=== PATIENT | female | born 1930 | race Caucasian/White ===

== ENCOUNTER 2018-05-20 13:17 | Inpatient (IN) ==
[2018-05-21] MEDS ORDERED: Temazepam 15 MG CAPSULE PO PRN (21:02)
[2018-05-21] MEDS ORDERED: Mag Hydrox/Al Hydrox/Simeth 30 ML UDC PO PRN (21:06)
[2018-05-21] MEDS: traZODone 50 MG TABLET PO SCH (23:41)
[2018-05-22] MEDS: *HR* Heparin 5,000 UNIT/ML VIAL SQ SCH ×2 (04:45→17:51)
[2018-05-22] MEDS: Nitrofurantoin (BID) 100 MG CAPSULE PO SCH ×2 (04:45→17:50)
[2018-05-22 05:22] LABS: Basophils % 0.5 %; Eosinophils # 0.3 K/mcL (0.0-0.6); Eosinophils % 5.5 %; Hematocrit 31.8 % (35.3-44.9); Hemoglobin 10.4 g/dL (11.5-15.4); Immature Granulocytes % 0.6 % (0-4); Lymphocytes # 1.6 K/mcL (0.6-4.6); Lymphocytes % 26.1 %; Mean Corpuscular HGB Conc 32.7 g/dL (31.6-35.5); Mean Corpuscular Hemoglobin 28.7 pg (28.0-33.3); Mean Corpuscular Volume 87.8 fL (83.0-100.0); Mean Platelet Volume 9.4 fL (9.4-12.4); Monocytes # 0.8 K/mcL (0.0-1.3); Monocytes % 13.5 %; Neutrophils # 3.3 K/mcL (1.6-8.9); Platelet Count 240 K/mcL (140-400); Red Blood Count 3.62 M/mcL (3.82-4.97); Red Cell Distribution Width 14.4 % (11.5-14.5); Segmented Neutrophils % 53.8 %
[2018-05-22 05:37] LABS: Alanine Aminotransferase 29 Units/L (7-52); Albumin/Globulin Ratio 1.2 (1.1-2.2); Alkaline Phosphatase 33 Units/L (34-104); Aspartate Amino Transferase 50 Units/L (13-39); BUN/Creatinine Ratio 13 (6-26); Bilirubin,Total 0.6 mg/dL (0.3-1.0); Blood Urea Nitrogen 8 mg/dL (8-23); Calcium 9.2 mg/dL (8.6-10.3); Carbon Dioxide 24 mEq/L (23-29); Chloride 108 mEq/L (98-107); Globulin 2.5 g/dL (2.4-3.5); Glucose 91 mg/dL (70-105); Osmolality,Calculated 288 (280-300); Potassium 3.4 mEq/L (3.5-5.1); Sodium 140 mEq/L (136-145); Total Protein 5.5 g/dL (6.4-8.9); eGFR For Non-African Americans > 60 (> 60)
[2018-05-22] MEDS: Multivit/Ca/Min/Fe/FA 1 TAB TABLET PO SCH (10:05)
[2018-05-22] MEDS: Fenofibrate 54 MG TABLET PO SCH (10:05)
[2018-05-22] MEDS: Aspirin Enteric Coated 81 MG Tablet PO SCH (10:06)
[2018-05-22] MEDS: Lisinopril 20 MG TABLET PO SCH (10:06)
--- NOTE | 2018-05-22 13:50 | Internal Med History&Physical ---
Addendum entered and electronically signed by Morgan Corcoran MD 05/22/18 14:39: I have personally performed a face to face evaluation on this patient. I have r eviewed and agree with the care plan. History and Exam by me shows: Patient gives a one-week history of nausea, vomiting, diarrhea, cough, shortness of breath, and failure to thrive. She was taken to [facility] and found to have influenza A. She did well after several days and has improved Her appetite is still not very good. She has no fevers chills or sweats. Her diarrhea persists. She was checked for C. difficile, by verbal report, and this was negative. She is now unsteady and weak and would like to return home. Therapy is planned to help her weakness. Past medical history was reviewed with patient and daughter. While dementia is listed, and apparently this is mild. She has hypertension, a history of coronary artery disease with "pulling procedure" and a brief arrhythmia, thereafter. No arrhythmia or treatment for same, recently. She is treated with a statin for hyperlipidemia. Surgeries include cholecystectomy, bladder suspension with resultant neurogenic bladder which causes her to need to self catheterize, for about 20 years. She has also had left cataract extraction with IOL, appendectomy, low back surgery. She has no known drug allergies. She is slightly hard of hearing but does not wear hearing aids. She has been told that there is a small wound on her buttocks which is apparently from traction per nursing. She wears full dentures, upper and lower. She drinks on a regular basis but her daughter states that she does not need very much, at all. She has never smoked and does not drink. She is a retired nurse's aide. She lives alone with the exception of her dog. Son lives next door and daughter is frequently by to see her; she lives nearby. Family history is significant for coronary disease in both parents. Patient has no complaint of chest discomfort, dyspnea, orthopnea, breathing problems, palpitations, nausea or vomiting, constipation or diarrhea, other changes in bowel habits, heartburn, difficulty with urination, kidney problems or kidney stones, fevers chills or sweats, rash or itching, seizures, headache or lightheadedness, heat or cold intolerance, blood problems or anemia, or other new complaints, except as mentioned above. Review of systems is otherwise negative. Examination: (Except as mentioned above): General: In no apparent distress, alert and oriented 3. Head: Atraumatic and normocephalic. Eyes: Extraocular muscles are intact, pupils equal round and reactive to light and accommodation. Sclerae anicteric. It is obvious that she has a left IOL. Ears: External ears are normal to inspection and hearing is grossly normal. Nose: Patent without lesion noted. Mouth: No intraoral lesions seen. She has full upper and lower dentures. Neck: Supple with trachea midline. There is no thyromegaly or adenopathy and carotids are 2+ without bruit heard. Respiratory: No use of accessory muscles. Lungs are clear throughout. Normal airflow. Cardiovascular: Regular rate and rhythm without murmur appreciated. Abdomen: Bowel sounds are normal. No hepatosplenomegaly masses or tenderness. Obese and therefore difficult to palpate deeply. Extremities: No cyanosis clubbing or edema. Neurological: A and O 3. Cranial nerves II through XII are intact. No focal deficits and no abnormal movements or postures. Skin: Warm and non-diaphoretic with no lesions noted. Breasts, pelvic and rectal: Not examined. We will plan to use therapies to return strength and stability. When she is stable, she will return home. Hypokalemia and hypomagnesemia will be treated. Original Note: Date of Encounter: 05/22/18 Time of Encounter: 13:42 Assessment and Plan (1) General weakness Current visit: Yes Status: Acute General weakness secondary to influenza a. PT and OT to eval and treat. Will follow progress. Ambulates with Walker. (2) Hypertension Current visit: Yes Status: Acute Controlled with current medication. Monitor blood pressure. Qualifiers: Hypertension type: unspecified Qualified Code(s): I10 - Essential (primary) hypertension (3) Dementia Current visit: Yes Status: Acute Mild. Continue supportive care. Qualifiers: Dementia type: unspecified type Dementia behavioral disturbance: without behavioral disturbance Qualified Code(s): F03.90 - Unspecified dementia without behavioral disturbance (4) HLD (hyperlipidemia) Current visit: Yes Status: Acute Continue fenofibrate Qualifiers: Hyperlipidemia type: unspecified Qualified Code(s): E78.5 - Hyperlipidemia, unspecified (5) Influenza A Current visit: Yes Status: Acute Improving. Continue to monitor. (6) Hypokalemia Current visit: Yes Status: Acute Will start supplements. Will monitor. (7) Hypomagnesemia Current visit: Yes Status: Acute Will start supplements. Monitor labs. (8) Diarrhea Current visit: Yes Status: Acute This is often on. Encourage PO fluids. Will monitor. Qualifiers: Diarrhea type: unspecified type Qualified Code(s): R19.7 - Diarrhea, unspecified Internal Medicine - H&P: HPI Admitted From: Hospital to Hospital Transfer Plans for Post Hospital Care: Home History of present illness: Ms. Painter is a 88 year old female admitted to rehab for general weakness status post influenza a. Patient was transferred from [facility]. She was admitted for influenza a after arriving to the emergency room with increased fever. This was on . Associated symptoms were coughing, fever, nausea and vomiting and diarrhea. She was given Tamiflu. She was also treated with Parks UTI with Klebsiella pneumoniae and E. coli. Past medical history includes dementia, hypertension and hyperlipidemia. Patient lives at home alone. Patient continues to have congested cough, nonproductive. Denies fever, chills, nausea vomiting. Has been having often on diarrhea. Past Med Surg Social Fam HX - Past Medical History Medical history: arthritis, dementia, hypertension, osteoporosis, other Additional medical history: Neuropathic bladder. Psychiatric history: no psych history - Past Surgical History Surgical History: appendectomy, cholecystectomy, hysterectomy Additional surgical history: heart cath, back surgery, bladder suspension - Social History Smoking Status: Never smoker Smokeless Tobacco Status: No Alcohol use: none Drug use: none Internal Medicine - H&P: Meds Aspirin [Lo-Dose Aspirin EC] 81 mg PO DAILY 05/16/18 [History] Donepezil [Aricept] 5 mg PO HS 05/16/18 [History] Fenofibrate Nanocrystallized [Fenofibrate] 160 mg PO DAILY 05/16/18 [History] Lisinopril [Zestril] 20 mg PO DAILY 05/16/18 [History] Lovastatin 40 mg PO DAILY 05/16/18 [History] Memantine HCl 10 mg PO BID 05/16/18 [History] Metoprolol [Lopressor] 25 mg PO BID 05/16/18 [History] Multivit-Min/FA/Lycopen/Lutein [Centrum Silver Tablet] 1 tab PO DAILY 05/16/18 [History] Omeprazole [PriLOSEC] 20 mg PO DAILY 05/16/18 [History] Trazodone HCl 100 mg PO HS 05/16/18 [History] Triamterene/HCTZ 37.5/25mg [Dyazide] 1 tab PO DAILY 05/16/18 [History] Triazolam 0.25 mg PO HS PRN 05/16/18 [History] Nitrofurantoin Macrocrystal [Nitrofurantoin] 100 mg PO Q12HR 05/21/18 [History] Allergy/AdvReac Type Severity Reaction Status Date / Time ciprofloxacin [From Cipro] Allergy Hives Verified 05/15/18 20:27 All Systems PM: A 10-system review of systems was performed and is negative for pertinent findings except as documented above in the HPI. - Constitutional Constitutional: no chills, no fever(s), no night sweats - EENT Eyes: no change in vision, no discharge, no pain, no photophobia Ears: no ear discharge, no ear pain, no tinnitus Nose, mouth and throat: no dysphagia, no nasal discharge, no neck pain, no sore throat - Cardiovascular Cardiovascular ROS IM: no chest pain, no diaphoresis, no dyspnea, no li ghtheadedness, no palpitations, no syncope - Respiratory Respiratory: no cough, no dyspnea, no wheezing, no excessive phlegm production - Gastrointestinal Gastrointestinal: no abdominal pain, no diarrhea, no hematemesis, no hematochezia, no melena, no nausea, no vomiting - Genitourinary Genitourinary: no change in urinary stream, no dysuria, no flank pain, no hematuria - Musculoskeletal Musculoskeletal ROS IM: no numbness, no tingling - Integumentary Integumentary IM: no rash, no unusual bruising - Neurological Neurological ROS: no confusion, no convulsions, no focal weakness, no numbness, no tingling, no tremor(s) - Hematologic/Lymphatic Hematologic/Lymphatic: no easy bruising - Constitutional Vitals: Temp Pulse Resp BP Pulse Ox 98.2 F 80 16 149/86 95 05/22/18 11:57 05/22/18 11:57 05/22/18 11:57 05/22/18 11:57 05/22/18 11:57 General appearance: Present: cooperative, A&O X 3, pleasant, no acute distress, answers questions appropriately - Head Head exam: Present: atraumatic, normocephalic - Eye Eye exam: Present: PERRL, conjuntiva pink, sclera anicteric Pupils: Present: PERRL - Neck Neck exam general surgery: Present: supple, trachea midline. Absent: lymphadenopathy - Respiratory Respiratory exam: Present: CTAB. Absent: accessory muscle use, rales, rhonchi, wheezes Additional comments: congested cough - Cardiovascular Cardiovascular exam: Present: RRR, +S1, +S2. Absent: diastolic murmur, gallop, rubs, systolic murmur - GI/Abdominal GI/Abdominal exam: Present: normal bowel sounds, soft, no peritoneal signs. Absent: distended, tenderness - Extremities Exam Extremities exam: Present: warm, radial pulses palpable and symmetrical. Absent: calf tenderness, cyanotic, pedal edema - Neurological Exam Neurological exam: Present: CN II-XII intact, oriented X3, no focal deficits. Absent: pronater drift, facial droop, speech deficit - Skin Skin exam: Present: dry, intact Internal Med - H&P Results - Labs CBC & Chem 7: 05/22/18 04:36 05/22/18 04:36 Labs: Short CBC 05/22/18 Range/Units 04:36 WBC 6.2 (4.3-11.1) K/mcL Hgb 10.4 L (11.5-15.4) g/dL Hct 31.8 L (35.3-44.9) % Plt Count 240 (140-400) K/mcL Neutrophils # 3.3 (1.6-8.9) K/mcL BMP 05/22/18 04:36 Sodium 140 Potassium 3.4 L Chloride 108 H Carbon Dioxide 24 BUN 8 Creatinine 0.60 Glucose 91 Calcium 9.2 Liver Function 05/22/18 Range/Units 04:36 Total Bilirubin 0.6 (0.3-1.0) mg/dL AST 50 H (13-39) Units/L ALT 29 (7-52) Units/L Alkaline Phosphatase 33 L (34-104) Units/L Albumin 3.0 L (3.5-5.7) g/dL
[2018-05-23] MEDS: traZODone 50 MG TABLET PO SCH ×2 (01:29→20:00)
[2018-05-23] MEDS: Acetaminophen 325 MG TABLET PO PRN (01:42)
[2018-05-23 06:39] LABS: BUN/Creatinine Ratio 9 (6-26); Blood Urea Nitrogen 6 mg/dL (8-23); Calcium 9.2 mg/dL (8.6-10.3); Carbon Dioxide 27 mEq/L (23-29); Chloride 102 mEq/L (98-107); Glucose 93 mg/dL (70-105); Magnesium 1.8 mg/dL (1.6-2.6); Osmolality,Calculated 269 (280-300); Potassium 3.4 mEq/L (3.5-5.1); Sodium 131 mEq/L (136-145); eGFR For Non-African Americans > 60 (> 60)
[2018-05-23] MEDS: Nitrofurantoin (BID) 100 MG CAPSULE PO SCH ×2 (06:59→17:53)
[2018-05-23] MEDS: *HR* Heparin 5,000 UNIT/ML VIAL SQ SCH ×2 (06:59→17:53)
[2018-05-23] MEDS: Multivit/Ca/Min/Fe/FA 1 TAB TABLET PO SCH (10:15)
[2018-05-23] MEDS: Fenofibrate 54 MG TABLET PO SCH (10:16)
[2018-05-23] MEDS: Aspirin Enteric Coated 81 MG Tablet PO SCH (10:16)
[2018-05-23] MEDS: Lisinopril 20 MG TABLET PO SCH (10:16)
--- NOTE | 2018-05-23 14:31 | Internal Med Progress Note ---
Date of Encounter: 05/23/18 Time of Encounter: 12:10 - Assessment and plan (1) General weakness Current Visit: Yes Status: Acute Assessment and plan: Seems to be improving and will continue therapies, as planned. (2) UTI (urinary tract infection) Current Visit: No Status: Acute Assessment and plan: Clinically without symptoms or signs. Qualifiers: Urinary tract infection type: site unspecified Hematuria presence: without hematuria Qualified Code(s): N39.0 - Urinary tract infection, site not specified (3) Hypertension Current Visit: Yes Status: Acute Assessment and plan: Clinically stable on current regimen. Qualifiers: Hypertension type: unspecified Qualified Code(s): I10 - Essential (primary) hypertension (4) Dementia Current Visit: Yes Status: Acute Assessment and plan: Currently, well compensated. Qualifiers: Dementia type: unspecified type Dementia behavioral disturbance: without behavioral disturbance Qualified Code(s): F03.90 - Unspecified dementia without behavioral disturbance (5) HLD (hyperlipidemia) Current Visit: Yes Status: Acute Assessment and plan: We will continue current regimen. Qualifiers: Hyperlipidemia type: unspecified Qualified Code(s): E78.5 - Hyperlipidemia, unspecified (6) Diarrhea Current Visit: Yes Status: Acute Assessment and plan: Per patient and nursing, improved. Qualifiers: Diarrhea type: unspecified type Qualified Code(s): R19.7 - Diarrhea, unspecified (7) Hypokalemia Current Visit: Yes Status: Acute Assessment and plan: We will continue supplementation and follow. (8) Hypomagnesemia Current Visit: Yes Status: Acute Assessment and plan: Improved after IV magnesium sulfate. - Subjective Interval history: Patient feels like she is improving. She has no acute complaints. Bowels and bladder been working well. Patient has no complaint of chest discomfort, dyspnea, orthopnea, palpitations, nausea or vomiting, constipation or diarrhea, other changes in bowel habits, difficulty with urination, rash or itching, or other new complaints, except as mentioned above. Review of systems is otherwise negative. I discussed management of her care with nursing staff. - Constitutional Vitals: Temp Pulse Resp BP Pulse Ox 97.6 F 84 16 150/81 96 05/23/18 07:59 05/23/18 07:59 05/23/18 07:59 05/23/18 07:59 05/23/18 07:59 Exam: Examination: (Except as mentioned above): General: In no apparent distress. Alert and oriented 3. Nondiaphoretic. Head: Atraumatic and normocephalic. Respiratory: No use of accessory muscles. Lungs are clear throughout. Normal airflow. Cardiovascular: Regular rate and rhythm without murmur appreciated. Abdomen: Bowel sounds are normal. No hepatosplenomegaly mass or tenderness appreciated. Obese and therefore difficult to palpate deeply. Patient is examined upright in chair and this also limits exam. Extremities: No cyanosis clubbing but does have 1+ edema, bilaterally.. Skin: Warm and non-diaphoretic with no new lesions noted. Internal Medicine: Result - Labs CBC & Chem 7: 05/22/18 04:36 05/23/18 05:45 Labs: BMP 05/23/18 05:45 Sodium 131 L Potassium 3.4 L Chloride 102 Carbon Dioxide 27 BUN 6 L Creatinine 0.66 Glucose 93 Calcium 9.2 Consult Discharge Plan - Plan Referrals: NONE,PCP [Primary Care Provider] -
[2018-05-24] MEDS: Nitrofurantoin (BID) 100 MG CAPSULE PO SCH ×2 (05:40→17:13)
[2018-05-24] MEDS: *HR* Heparin 5,000 UNIT/ML VIAL SQ SCH ×2 (05:41→17:13)
[2018-05-24] MEDS: Multivit/Ca/Min/Fe/FA 1 TAB TABLET PO SCH (08:25)
[2018-05-24] MEDS: Aspirin Enteric Coated 81 MG Tablet PO SCH (08:25)
[2018-05-24] MEDS: Lisinopril 20 MG TABLET PO SCH (08:26)
[2018-05-24] MEDS: Fenofibrate 54 MG TABLET PO SCH (08:26)
[2018-05-24] MEDS: Acetaminophen 325 MG TABLET PO PRN (10:00)
--- NOTE | 2018-05-24 15:22 | Internal Med Progress Note ---
Date of Encounter: 05/25/18 Time of Encounter: 15:20 - Assessment and plan (1) General weakness Current Visit: Yes Status: Acute Assessment and plan: She is off therapy because today is Friday. She will look forward to returning to therapy, tomorrow. (2) UTI (urinary tract infection) Current Visit: No Status: Acute Assessment and plan: Clinically without signs or symptoms. Qualifiers: Urinary tract infection type: site unspecified Hematuria presence: without hematuria Qualified Code(s): N39.0 - Urinary tract infection, site not specified (3) Hypertension Current Visit: Yes Status: Acute Assessment and plan: Clinically stable. Qualifiers: Hypertension type: unspecified Qualified Code(s): I10 - Essential (primary) hypertension (4) Dementia Current Visit: Yes Status: Acute Assessment and plan: Mild to current exam. We will continue current medical regimen. Qualifiers: Dementia type: unspecified type Dementia behavioral disturbance: without behavioral disturbance Qualified Code(s): F03.90 - Unspecified dementia without behavioral disturbance (5) HLD (hyperlipidemia) Current Visit: Yes Status: Acute Qualifiers: Hyperlipidemia type: unspecified Qualified Code(s): E78.5 - Hyperlipidemia, unspecified (6) Diarrhea Current Visit: Yes Status: Acute Assessment and plan: This is persistent and improving. Qualifiers: Diarrhea type: unspecified type Qualified Code(s): R19.7 - Diarrhea, unspecified (7) Hypokalemia Current Visit: Yes Status: Resolved Assessment and plan: We will continue supplementation, as before. (8) Hypomagnesemia Current Visit: Yes Status: Acute Assessment and plan: Improved by recent lab. - Subjective Interval history: Patient is feeling generally well but still has a nagging cough. She denies much phlegm production and no chest pain or other changes with a cough. We discussed the fact that it might take 1-6 weeks for this resolved, after influenza. She denies other problems and is moving her bowels. Patient has no complaint of chest discomfort, dyspnea, orthopnea, palpitations, nausea or vomiting, constipation or diarrhea, other changes in bowel habits, difficulty with urination, rash or itching, or other new complaints, except as mentioned above. Review of systems is otherwise negative. I discussed management of her care with nursing staff. - Constitutional Vitals: Temp Pulse Resp BP Pulse Ox 98.9 F 80 16 150/86 94 05/24/18 07:34 05/24/18 07:34 05/24/18 07:34 05/24/18 07:34 05/24/18 07:34 Exam: Examination: (Except as mentioned above): General: In no apparent distress. Alert and oriented 3. Nondiaphoretic. Head: Atraumatic and normocephalic. Respiratory: No use of accessory muscles. Lungs are clear throughout. Normal airflow. Cardiovascular: Regular rate and rhythm without murmur appreciated. Abdomen: Bowel sounds are normal. No hepatosplenomegaly mass or tenderness appreciated. Obese and therefore difficult to palpate deeply. Extremities: No cyanosis clubbing or edema. Skin: Warm and non-diaphoretic with no new lesions noted. Internal Medicine: Result - Labs CBC & Chem 7: 05/25/18 05:00 05/25/18 05:00 Consult Discharge Plan - Plan Referrals: NONE,PCP [Primary Care Provider] -
[2018-05-24] MEDS: traZODone 50 MG TABLET PO SCH (21:07)
[2018-05-25] MEDS: Nitrofurantoin (BID) 100 MG CAPSULE PO SCH ×2 (04:32→17:29)
[2018-05-25] MEDS: *HR* Heparin 5,000 UNIT/ML VIAL SQ SCH ×2 (04:33→17:29)
[2018-05-25 05:51] LABS: Basophils % 0.6 %; Eosinophils # 0.3 K/mcL (0.0-0.6); Eosinophils % 5.6 %; Hematocrit 31.9 % (35.3-44.9); Hemoglobin 10.3 g/dL (11.5-15.4); Immature Granulocytes % 0.6 % (0-4); Lymphocytes # 1.8 K/mcL (0.6-4.6); Lymphocytes % 35.7 %; Mean Corpuscular HGB Conc 32.3 g/dL (31.6-35.5); Mean Corpuscular Hemoglobin 28.7 pg (28.0-33.3); Mean Corpuscular Volume 88.9 fL (83.0-100.0); Mean Platelet Volume 9.6 fL (9.4-12.4); Monocytes # 0.6 K/mcL (0.0-1.3); Monocytes % 12.7 %; Neutrophils # 2.3 K/mcL (1.6-8.9); Platelet Count 254 K/mcL (140-400); Red Blood Count 3.59 M/mcL (3.82-4.97); Red Cell Distribution Width 14.7 % (11.5-14.5); Segmented Neutrophils % 44.8 %
[2018-05-25 06:11] LABS: Alanine Aminotransferase 33 Units/L (7-52); Albumin/Globulin Ratio 1.2 (1.1-2.2); Alkaline Phosphatase 36 Units/L (34-104); Aspartate Amino Transferase 39 Units/L (13-39); BUN/Creatinine Ratio 10 (6-26); Bilirubin,Total 0.6 mg/dL (0.3-1.0); Blood Urea Nitrogen 9 mg/dL (8-23); Calcium 9.8 mg/dL (8.6-10.3); Carbon Dioxide 26 mEq/L (23-29); Chloride 105 mEq/L (98-107); Globulin 2.5 g/dL (2.4-3.5); Glucose 113 mg/dL (70-105); Osmolality,Calculated 279 (280-300); Potassium 4.2 mEq/L (3.5-5.1); Sodium 135 mEq/L (136-145); Total Protein 5.5 g/dL (6.4-8.9); eGFR For Non-African Americans 57 (> 60)
[2018-05-25] MEDS: Fenofibrate 54 MG TABLET PO SCH (10:26)
[2018-05-25] MEDS: Multivit/Ca/Min/Fe/FA 1 TAB TABLET PO SCH (10:27)
[2018-05-25] MEDS: Lisinopril 20 MG TABLET PO SCH (10:27)
[2018-05-25] MEDS: Aspirin Enteric Coated 81 MG Tablet PO SCH (10:27)
--- NOTE | 2018-05-25 11:06 | Internal Med Progress Note ---
Addendum entered and electronically signed by Morgan Corcoran MD 05/25/18 12:39: I have personally performed a face to face evaluation on this patient. I have r eviewed and agree with the care plan. History and Exam by me shows: Patient is doing well with improvement in her cough, even since yesterday. She did well in her first episode of therapy, this morning. She has no other acute complaints. No diarrhea today or yesterday. Discussed care with other providers and/or nursing. Patient has no complaint of chest discomfort, dyspnea, orthopnea, palpitations, nausea or vomiting, constipation or diarrhea, other changes in bowel habits, difficulty with urination, rash or itching, or other new complaints, except as mentioned above. Review of systems is otherwise negative. Examination: (Except as mentioned above): General: In no apparent distress. Alert and oriented 3. Nondiaphoretic. Head: Atraumatic and normocephalic. Respiratory: No use of accessory muscles. Lungs are clear throughout. Normal airflow. Cardiovascular: Regular rate and rhythm without murmur appreciated. Abdomen: Bowel sounds are normal. No hepatosplenomegaly mass or tenderness appreciated. Obese and therefore difficult to palpate deeply. Patient is examined upright in chair and this also limits exam. Extremities: No cyanosis clubbing or edema. Skin: Warm and non-diaphoretic with no new lesions noted. Original Note: Date of Encounter: 05/25/18 Time of Encounter: 11:06 - Assessment and plan (1) General weakness Current Visit: Yes Status: Acute Assessment and plan: Continue PT and OT. Will follow with progress. Ambulating with Walker. Gene ral weakness secondary to influenza A. This is improving. (2) Hypertension Current Visit: Yes Status: Acute Assessment and plan: Controlled with current medication. Monitor blood pressure. Qualifiers: Hypertension type: unspecified Qualified Code(s): I10 - Essential (primary) hypertension (3) Dementia Current Visit: Yes Status: Acute Assessment and plan: Mild dementia. Continue supportive care. Qualifiers: Dementia type: unspecified type Dementia behavioral disturbance: without behavioral disturbance Qualified Code(s): F03.90 - Unspecified dementia without behavioral disturbance (4) HLD (hyperlipidemia) Current Visit: Yes Status: Acute Assessment and plan: Continue Statin Qualifiers: Hyperlipidemia type: unspecified Qualified Code(s): E78.5 - Hyperlipidemia, unspecified (5) Influenza A Current Visit: Yes Status: Acute Assessment and plan: Resolving. (6) Hypokalemia Current Visit: Yes Status: Resolved (7) Hypomagnesemia Current Visit: Yes Status: Acute (8) Diarrhea Current Visit: Yes Status: Acute Qualifiers: Diarrhea type: unspecified type Qualified Code(s): R19.7 - Diarrhea, unspecified - Subjective Interval history: Patient participating well with therapy denies shortness of breath or chest pain denies fever, chills, nausea vomiting or diarrhea. Still has productive cough at times. Continues to be on Macrobid for UTI. - Constitutional Vitals: Temp Pulse Resp BP Pulse Ox 97.2 F L 78 16 144/58 95 05/25/18 07:10 05/25/18 07:10 05/25/18 07:10 05/25/18 07:10 05/25/18 07:10 General appearance: Present: cooperative, A&O X 3, pleasant, no acute distress, answers questions appropriately - Head Head exam: Present: atraumatic, normocephalic - Eye Eye exam: Present: PERRL, conjuntiva pink, sclera anicteric Pupils: Present: PERRL - Neck Neck exam general surgery: Present: supple, trachea midline. Absent: lymphadenopathy - Respiratory Respiratory exam: Present: CTAB. Absent: accessory muscle use, rales, rhonchi, wheezes Additional comments: No cough at time of exam - Cardiovascular Cardiovascular exam: Present: RRR, +S1, +S2. Absent: diastolic murmur, gallop, rubs, systolic murmur - GI/Abdominal GI/Abdominal exam: Present: normal bowel sounds, soft, no peritoneal signs. Absent: distended, tenderness - Extremities Exam Extremities exam: Present: pedal edema, warm, radial pulses palpable and symmetrical. Absent: calf tenderness, cyanotic Additional comments: Trace pedal edema bilateral - Neurological Exam Neurological exam: Present: CN II-XII intact, oriented X3, no focal deficits. A bsent: pronater drift, facial droop, speech deficit - Skin Skin exam: Present: dry, intact Internal Medicine: Result - Labs CBC & Chem 7: 05/25/18 05:00 05/25/18 05:00 Labs: Short CBC 05/25/18 Range/Units 05:00 WBC 5.0 (4.3-11.1) K/mcL Hgb 10.3 L (11.5-15.4) g/dL Hct 31.9 L (35.3-44.9) % Plt Count 254 (140-400) K/mcL Neutrophils # 2.3 (1.6-8.9) K/mcL BMP 05/25/18 05:00 Sodium 135 L Potassium 4.2 Chloride 105 Carbon Dioxide 26 BUN 9 Creatinine 0.93 Glucose 113 H Calcium 9.8 Liver Function 05/25/18 Range/Units 05:00 Total Bilirubin 0.6 (0.3-1.0) mg/dL AST 39 (13-39) Units/L ALT 33 (7-52) Units/L Alkaline Phosphatase 36 (34-104) Units/L Albumin 3.0 L (3.5-5.7) g/dL Consult Discharge Plan - Plan Referrals: NONE,PCP [Primary Care Provider] -
[2018-05-25] MEDS: traZODone 50 MG TABLET PO SCH (21:36)
[2018-05-26] MEDS: Nitrofurantoin (BID) 100 MG CAPSULE PO SCH ×2 (05:53→18:10)
[2018-05-26] MEDS: *HR* Heparin 5,000 UNIT/ML VIAL SQ SCH ×2 (05:53→18:10)
[2018-05-26] MEDS: Acetaminophen 325 MG TABLET PO PRN (09:56)
[2018-05-26] MEDS: Aspirin Enteric Coated 81 MG Tablet PO SCH (09:57)
[2018-05-26] MEDS: Multivit/Ca/Min/Fe/FA 1 TAB TABLET PO SCH (09:57)
[2018-05-26] MEDS: Lisinopril 20 MG TABLET PO SCH (09:57)
[2018-05-26] MEDS: Fenofibrate 54 MG TABLET PO SCH (09:57)
[2018-05-26] MEDS: traZODone 50 MG TABLET PO SCH (20:01)
[2018-05-27] MEDS: *HR* Heparin 5,000 UNIT/ML VIAL SQ SCH ×2 (06:45→17:37)
[2018-05-27] MEDS: Nitrofurantoin (BID) 100 MG CAPSULE PO SCH ×2 (06:45→17:37)
[2018-05-27] MEDS: Multivit/Ca/Min/Fe/FA 1 TAB TABLET PO SCH (08:33)
[2018-05-27] MEDS: Fenofibrate 54 MG TABLET PO SCH (08:33)
[2018-05-27] MEDS: Aspirin Enteric Coated 81 MG Tablet PO SCH (08:33)
[2018-05-27] MEDS: Lisinopril 20 MG TABLET PO SCH (08:34)
--- NOTE | 2018-05-27 10:53 | Internal Med Progress Note ---
Addendum entered and electronically signed by Morgan Corcoran MD 05/27/18 11:43: I have personally performed a face to face evaluation on this patient. I have r eviewed and agree with the care plan. History and Exam by me shows: The patient is doing well without complaints. She is participating in therapy. Social service presents paperwork for FMLA completion and I have done so. This is for her daughter. The patient moved her bowels this morning and has no bladder problems. She is without other acute issues. Discussed care with other providers and/or nursing. Patient has no complaint of chest discomfort, dyspnea, orthopnea, palpitations, nausea or vomiting, constipation or diarrhea, other changes in bowel habits, difficulty with urination, rash or itching, or other new complaints, except as mentioned above. Review of systems is otherwise negative. Examination: (Except as mentioned above): General: In no apparent distress. Alert and oriented 3. Nondiaphoretic. Head: Atraumatic and normocephalic. Respiratory: No use of accessory muscles. Lungs are clear throughout. Normal airflow. Cardiovascular: Regular rate and rhythm without murmur appreciated. Abdomen: Bowel sounds are normal. No hepatosplenomegaly mass or tenderness appreciated. Obese and therefore difficult to palpate deeply. Patient is examined upright in chair and this also limits exam. Extremities: No cyanosis clubbing or edema. Skin: Warm and non-diaphoretic with no new lesions noted. Original Note: Date of Encounter: 05/27/18 Time of Encounter: 10:51 - Assessment and plan (1) Influenza A Current Visit: Yes Status: Acute Assessment and plan: No acute issues at this time. Patient continues to have fine rales heard to her basilar araujo. Denies any dyspnea or productive cough. Patient continues to complain of fatigue during exertion while at therapy. Afebrile. We will continue with current medications and plan of care. (2) CAD (coronary artery disease) Current Visit: Yes Status: Chronic Assessment and plan: No acute issues. Patient denies any palpitations or chest discomforts. We will continue with current medications. Vital signs stable. Qualifiers: Coronary Disease-Associated Artery/Lesion type: unspecified vessel or lesion type [place] vs. transplanted heart: [place] heart Associated angina: with unspecified angina Qualified Code(s): I25.119 - Atherosclerotic heart disease of [place] coronary artery with unspecified angina pectoris (3) Hypertension Current Visit: Yes Status: Chronic Assessment and plan: Vital signs stable. We will continue with current medications. Qualifiers: Hypertension type: unspecified Qualified Code(s): I10 - Essential (primary) hypertension (4) Dementia Current Visit: Yes Status: Chronic Assessment and plan: No acute issues. Patient has been appropriate with conversation appears oriented. No behavior issues reported per nursing. We will continue with current medications. Qualifiers: Dementia type: unspecified type Dementia behavioral disturbance: without behavioral disturbance Qualified Code(s): F03.90 - Unspecified dementia without behavioral disturbance - Time Spent With Patient less than 15 minutes - Subjective Interval history: Patient appears relaxed and currently denies any discomforts or shortness of breath. Patient denies any chest palpitations or productive cough. Denies fever/chills. Patient states that she continues to become easily fatigued during physical therapy, but states that she feels she is progressing well. - Constitutional Vitals: Temp Pulse Resp BP Pulse Ox 98.3 F 92 17 134/64 93 05/26/18 19:23 05/26/18 19:23 05/26/18 19:23 05/26/18 19:23 05/26/18 19:23 General appearance: Present: cooperative, A&O X 3, pleasant, no acute distress, answers questions appropriately - Head Head exam: Present: atraumatic, normocephalic - Eye Eye exam: Present: PERRL, conjuntiva pink, sclera anicteric Pupils: Present: PERRL - Neck Neck exam general surgery: Present: supple, trachea midline. Absent: lymphadenopathy - Respiratory Respiratory exam: Present: CTAB, rales. Absent: accessory muscle use, rhonchi, wheezes Additional comments: Lungs are clear throughout upper araujo with fine posterior rales her to bases. Noted increased rails to left lower lobes. No productive cough. Respiratory effort appears relaxed. - Cardiovascular Cardiovascular exam: Present: RRR, +S1, +S2. Absent: diastolic murmur, gallop, rubs, systolic murmur - GI/Abdominal GI/Abdominal exam: Present: normal bowel sounds, soft, no peritoneal signs. Absent: distended, tenderness - Extremities Exam Extremities exam: Present: warm, radial pulses palpable and symmetrical. Absent: calf tenderness, cyanotic, pedal edema - Neurological Exam Neurological exam: Present: CN II-XII intact, oriented X3, no focal deficits. Absent: pronater drift, facial droop, speech deficit - Skin Skin exam: Present: dry, intact Internal Medicine: Result - Labs CBC & Chem 7: 05/25/18 05:00 05/25/18 05:00 Consult Discharge Plan - Plan Referrals: NONE,PCP [Primary Care Provider] -
--- NOTE | 2018-05-27 12:57 | Discharge Summary ---
<Bernard Felix - Last Filed: 05/27/18 12:52> Date of Encounter: 05/28/18 - Discharge Diagnosis (1) Influenza A Priority: Primary Status: Acute Comments: Patient was admitted to this facility after recovery [facility] influenza A [facility]. Patient has progressed well with physical therapy. Lungs are clear throughout upper araujo but continues to have fine basilar rales. Patient to continue follow-up with PCP after discharge. (2) CAD (coronary artery disease) Priority: Secondary Status: Chronic Comments: No acute issues during stay at this facility. Patient has night any chest palpitations or discomforts. We will continue on home medications and follow-up with PCP. Qualifiers: Coronary Disease-Associated Artery/Lesion type: unspecified vessel or lesion type [place] vs. transplanted heart: [place] heart Associated angina: with unspecified angina Qualified Code(s): I25.119 - Atherosclerotic heart disease of [place] coronary artery with unspecified angina pectoris (3) Hypertension Priority: Secondary Status: Chronic Comments: Vital signs remained stable during her stay at this facility. We will continue on home medications and follow-up with PCP for further management Qualifiers: Hypertension type: unspecified Qualified Code(s): I10 - Essential (primary) hypertension (4) Dementia Status: Chronic Comments: No acute issues. Patient has remained appropriate with no behavior issues reported per nursing. Qualifiers: Dementia type: unspecified type Dementia behavioral disturbance: without behavioral disturbance Qualified Code(s): F03.90 - Unspecified dementia without behavioral disturbance Hospital course: Ms. Painter is a 88 year old female, admitted to rehab for general weakness status post influenza a. Patient was transferred from [facility]. She was admitted for influenza a after arriving to the emergency room with increased fever. This was on . Associated symptoms were coughing, fever, nausea and vomiting and diarrhea. She was given Tamiflu. She was also treated for UTI with Klebsiella pneumoniae and E. coli. Past medical history includes dementia, hypertension and hyperlipidemia. Patient lives at home alone. Patient showed no issues during her stay at this facility. Patient dissipated with physical therapy and progressed well. States she continues to have some fatigue with exertion but denies any dyspnea or productive cough. To continue her indications and follow-up with PCP within one week. - Time Spent with Patient Total time spent providing and/or coordinating discharge services: - Discharge Medications Home Medications: Aspirin [Lo-Dose Aspirin EC] 81 mg PO DAILY 05/16/18 [History] Donepezil [Aricept] 5 mg PO HS 05/16/18 [History] Fenofibrate Nanocrystallized [Fenofibrate] 160 mg PO DAILY 05/16/18 [History] Lisinopril [Zestril] 20 mg PO DAILY 05/16/18 [History] Lovastatin 40 mg PO DAILY 05/16/18 [History] Memantine HCl 10 mg PO BID 05/16/18 [History] Metoprolol [Lopressor] 25 mg PO BID 05/16/18 [History] Multivit-Min/FA/Lycopen/Lutein [Centrum Silver Tablet] 1 tab PO DAILY 05/16/18 [History] Omeprazole [PriLOSEC] 20 mg PO DAILY 05/16/18 [History] Trazodone HCl 100 mg PO HS 05/16/18 [History] Triamterene/HCTZ 37.5/25mg [Dyazide] 1 tab PO DAILY 05/16/18 [History] Triazolam 0.25 mg PO HS PRN 05/16/18 [History] Nitrofurantoin Macrocrystal [Nitrofurantoin] 100 mg PO Q12HR 05/21/18 [History] Allergies/Adverse Reactions: Allergy/AdvReac Type Severity Reaction Status Date / Time ciprofloxacin [From Cipro] Allergy Hives Verified 05/15/18 20:27 Date of admission: 05/21/18 19:20 Primary care physician: PCP NONE Consults: 05/21/18 21:08 Consult to Occupational Therapy [CONS] Routine Comment: Eval and treat Reason for Consult: Evaluate and treat Does patient have active BEDREST order?: No Is patient medically & hemodynamically stable?: Yes Patient assessed for mobility or mobilized this visit?: Yes Consult to Physical Therapy [CONS] Routine Comment: Evaluate and treat. Reason for Consult: Evaluate and treat Does patient have active BEDREST order?: No Is patient medically & hemodynamically stable?: Yes Patient assessed for mobility or mobilized this visit?: Yes Consult to Recreational Therapy [CONS] Routine Comment: Consult to [employer] Supervisor [CONS] Routine Reason for SW Consult: Evaluate and treat 05/21/18 21:14 Consult to Physical Therapy [CONS] Routine Comment: Evaluate, develop and implement POC Reason for Consult: Evaluate and treat Does patient have active BEDREST order?: No Is patient medically & hemodynamically stable?: Yes Patient assessed for mobility or mobilized this visit?: Yes Discharging clinician: Morgan Corcoran - Constitutional Vitals: Temp Pulse Resp BP Pulse Ox 98.3 F 92 17 134/64 93 05/26/18 19:23 05/26/18 19:23 05/26/18 19:23 05/26/18 19:23 05/26/18 19:23 General appearance: Present: cooperative, A&O X 3, pleasant, no acute distress, answers questions appropriately - Head Head exam: Present: atraumatic, normocephalic - Eye Eye exam: Present: PERRL, conjuntiva pink, sclera anicteric Pupils: Present: PERRL - Neck Neck exam general surgery: Present: supple, trachea midline. Absent: lymphadenopathy - Respiratory Respiratory exam: Present: CTAB. Absent: accessory muscle use, rales, rhonchi, wheezes Additional comments: Lungs are clear throughout upper araujo with fine posterior bibasilar rales heard. No productive cough. Respiratory effort appears relaxed - Cardiovascular Cardiovascular exam: Present: RRR, +S1, +S2. Absent: diastolic murmur, gallop, rubs, systolic murmur - GI/Abdominal GI/Abdominal exam: Present: normal bowel sounds, soft, no peritoneal signs. Absent: distended, tenderness - Extremities Exam Extremities exam: Present: warm, radial pulses palpable and symmetrical. Absent: calf tenderness, cyanotic, pedal edema - Neurological Exam Neurological exam: Present: CN II-XII intact, oriented X3, no focal deficits. Absent: pronater drift, facial droop, speech deficit - Skin Skin exam: Present: dry, intact - Patient Status Disposition: Home Health Service Condition: Good Functional capacity at discharge: uses cane/walker Overall status at discharge: patient is progressing back to baseline - Discharge Instructions Follow Up With: NONE,PCP [Primary Care Provider] - Richie Lima DO [Partnered Physician] - (follow up in June ) - Diet and Activity Activity: ambulate only with your walker, as per physical therapy Diet: low fat, low cholesterol, low salt diet <Morgan Corcoran - Last Filed: 05/28/18 11:59> Date of Encounter: 05/28/18 Time of Encounter: 11:55 - Discharge Diagnosis (1) General weakness Priority: Primary Status: Acute (2) UTI (urinary tract infection) Priority: Secondary Status: Acute Qualifiers: Urinary tract infection type: site unspecified Hematuria presence: without hematuria Qualified Code(s): N39.0 - Urinary tract infection, site not specified (3) Hypertension Priority: Secondary Status: Chronic Qualifiers: Hypertension type: unspecified Qualified Code(s): I10 - Essential (primary) hypertension (4) Dementia Priority: Secondary Status: Chronic Qualifiers: Dementia type: unspecified type Dementia behavioral disturbance: without behavioral disturbance Qualified Code(s): F03.90 - Unspecified dementia without behavioral disturbance (5) HLD (hyperlipidemia) Priority: Secondary Status: Acute Qualifiers: Hyperlipidemia type: unspecified Qualified Code(s): E78.5 - Hyperlipidemia, unspecified (6) Diarrhea Priority: Secondary Status: Acute Qualifiers: Diarrhea type: unspecified type Qualified Code(s): R19.7 - Diarrhea, unspecified (7) Hypokalemia Priority: Secondary Status: Resolved (8) Hypomagnesemia Priority: Secondary Status: Acute Hospital course: Ms. Painter is a 88 year old female, as above. She has no problems that are new since yesterday and is excited about going home. She does not like hospital food but her appetite has generally returned to normal. She was treated for hypomagnesemia, hypokalemia, and diarrhea. All of which have resolved or greatly improved. Patient has no complaint of chest discomfort, dyspnea, orthopnea, palpitations, nausea or vomiting, constipation or diarrhea, other changes in bowel habits, difficulty with urination, rash or itching, or other new complaints, except as mentioned above. Review of systems is otherwise negative. I discussed management of her care with nursing staff. - Time Spent with Patient Total time spent providing and/or coordinating discharge services: Date of admission: 05/21/18 19:20 Primary care physician: PCP NONE Consults: 05/21/18 21:08 Consult to Occupational Therapy [CONS] Routine Comment: Eval and treat Reason for Consult: Evaluate and treat Does patient have active BEDREST order?: No Is patient medically & hemodynamically stable?: Yes Patient assessed for mobility or mobilized this visit?: Yes Consult to Physical Therapy [CONS] Routine Comment: Evaluate and treat. Reason for Consult: Evaluate and treat Does patient have active BEDREST order?: No Is patient medically & hemodynamically stable?: Yes Patient assessed for mobility or mobilized this visit?: Yes Consult to Recreational Therapy [CONS] Routine Comment: Consult to [employer] Supervisor [CONS] Routine Reason for SW Consult: Evaluate and treat 05/21/18 21:14 Consult to Physical Therapy [CONS] Routine Comment: Evaluate, develop and implement POC Reason for Consult: Evaluate and treat Does patient have active BEDREST order?: No Is patient medically & hemodynamically stable?: Yes Patient assessed for mobility or mobilized this visit?: Yes Anticipated date of discharge: 05/28/18 - Constitutional Vitals: Temp Pulse Resp BP Pulse Ox 98.0 F 82 16 152/84 93 05/28/18 07:55 05/28/18 07:55 05/28/18 07:55 05/28/18 07:55 05/28/18 07:55 Exam: Examination: (Except as mentioned above): General: In no apparent distress. Alert and oriented 3. Nondiaphoretic. Head: Atraumatic and normocephalic. Respiratory: No use of accessory muscles. Lungs are clear throughout. Normal airflow. Cardiovascular: Regular rate and rhythm without murmur appreciated. Abdomen: Bowel sounds are normal. No hepatosplenomegaly mass or tenderness appreciated. Obese and therefore difficult to palpate deeply. Patient is examined upright in chair and this also limits exam. Extremities: No cyanosis clubbing or edema. Skin: Warm and non-diaphoretic with no new lesions noted. - Patient Status Functional capacity at discharge: uses cane/walker Overall status at discharge: patient is progressing back to baseline - Diet and Activity Activity: ambulate only with your walker, as per physical therapy Diet: low salt diet
[2018-05-27] MEDS: traZODone 50 MG TABLET PO SCH (20:06)
[2018-05-28] MEDS: *HR* Heparin 5,000 UNIT/ML VIAL SQ SCH (05:49)
[2018-05-28] MEDS: Nitrofurantoin (BID) 100 MG CAPSULE PO SCH (05:50)
[2018-05-28 07:56] VITALS: BP 152/84
[2018-05-28] MEDS: Fenofibrate 54 MG TABLET PO SCH (08:14)
[2018-05-28] MEDS: Aspirin Enteric Coated 81 MG Tablet PO SCH (08:14)
[2018-05-28] MEDS: Multivit/Ca/Min/Fe/FA 1 TAB TABLET PO SCH (08:14)
[2018-05-28] MEDS: Lisinopril 20 MG TABLET PO SCH (08:15)
--- NOTE | 2018-05-28 12:29 | Physician Discharge Referral ---
Home Health/Hosp Referral Info Transfer to: Home Health Provider in Charge Post Discharge: PCP - Diagnosis (1) General weakness Priority: Primary Status: Acute (2) UTI (urinary tract infection) Priority: Secondary Status: Acute (3) Hypertension Priority: Secondary Status: Chronic (4) Dementia Priority: Secondary Status: Chronic (5) HLD (hyperlipidemia) Priority: Secondary Status: Acute (6) Diarrhea Priority: Secondary Status: Acute (7) Hypokalemia Priority: Secondary Status: Resolved (8) Hypomagnesemia Priority: Secondary Status: Acute - Respiratory Orders Smoking Cessation: Smoking cessation has been advised. For more information, call the [place] Tobacco Quit Line at 9-087-GYQA-NOW. - Diet/Nutrition Diet/Nutrition Orders: No Added Salt (AISSATOU) - Activity Activity Orders: Walker - Services Needed Following services are medically necessary services: Home Health Aide, Physical Therapy, Occupational Therapy - Transfer Medications Home Medications: Aspirin [Lo-Dose Aspirin EC] 81 mg PO DAILY 05/16/18 [History] Donepezil [Aricept] 5 mg PO HS 05/16/18 [History] Fenofibrate Nanocrystallized [Fenofibrate] 160 mg PO DAILY 05/16/18 [History] Lisinopril [Zestril] 20 mg PO DAILY 05/16/18 [History] Lovastatin 40 mg PO DAILY 05/16/18 [History] Memantine HCl 10 mg PO BID 05/16/18 [History] Metoprolol [Lopressor] 25 mg PO BID 05/16/18 [History] Multivit-Min/FA/Lycopen/Lutein [Centrum Silver Tablet] 1 tab PO DAILY 05/16/18 [History] Omeprazole [PriLOSEC] 20 mg PO DAILY 05/16/18 [History] Trazodone HCl 100 mg PO HS 05/16/18 [History] Triamterene/HCTZ 37.5/25mg [Dyazide] 1 tab PO DAILY 05/16/18 [History] Triazolam 0.25 mg PO HS PRN 05/16/18 [History] Nitrofurantoin Macrocrystal [Nitrofurantoin] 100 mg PO Q12HR 05/21/18 [History] Allergies/Adverse Reactions: Allergy/AdvReac Type Severity Reaction Status Date / Time ciprofloxacin [From Cipro] Allergy Hives Verified 05/15/18 20:27 Certification: Further, I certify that my clinical findings support that this patient is homebound (i.e. absences from home require considerable and taxing effort and are for medical reasons or sikh services or infrequently or short duration when for other reasons) because: Homebound Reason: Patient requires assistance of a person or device to safely leave home Attestation: My signature below is to certify that this patient is under my care and that I, or nurse practitioner, or a physician's assistant womens volleyball coach working with me, has a face-to -face encounter with this patient.
--- NOTE | 2018-05-28 17:05 | Internal Med Progress Note ---
Date of Encounter: 05/26/18 Time of Encounter: 11:00 - Assessment and plan (1) General weakness Status: Acute Assessment and plan: Continue PT and OT. Will follow with progress. Ambulating with Walker. General weakness secondary to influenza A. This is improving. (2) Hypertension Status: Chronic Assessment and plan: Controlled with current medication. Monitor blood pressure. Qualifiers: Hypertension type: unspecified Qualified Code(s): I10 - Essential (primary) hypertension (3) Dementia Status: Chronic Assessment and plan: Mild dementia. Continue supportive care. Qualifiers: Dementia type: unspecified type Dementia behavioral disturbance: without behavioral disturbance Qualified Code(s): F03.90 - Unspecified dementia without behavioral disturbance (4) HLD (hyperlipidemia) Status: Acute Assessment and plan: Continue Statin Qualifiers: Hyperlipidemia type: unspecified Qualified Code(s): E78.5 - Hyperlipidemia, unspecified (5) Influenza A Status: Acute Assessment and plan: Resolving. - Time Spent With Patient less than 15 minutes - Subjective Interval history: Patient participating well with therapy denies shortness of breath or chest pain denies fever, chills, nausea vomiting or diarrhea. - Constitutional Vitals: Temp Pulse Resp BP Pulse Ox 98.0 F 82 16 152/84 93 05/28/18 07:55 05/28/18 07:55 05/28/18 07:55 05/28/18 07:55 05/28/18 07:55 General appearance: Present: cooperative, A&O X 3, pleasant, no acute distress, answers questions appropriately - Head Head exam: Present: atraumatic, normocephalic - Eye Eye exam: Present: PERRL, conjuntiva pink, sclera anicteric Pupils: Present: PERRL - Neck Neck exam general surgery: Present: supple, trachea midline. Absent: lymphadenopathy - Respiratory Respiratory exam: Present: CTAB. Absent: accessory muscle use, rales, rhonchi, wheezes - Cardiovascular Cardiovascular exam: Present: RRR, +S1, +S2. Absent: diastolic murmur, gallop, rubs, systolic murmur - GI/Abdominal GI/Abdominal exam: Present: normal bowel sounds, soft, no peritoneal signs. Absent: distended, tenderness - Extremities Exam Extremities exam: Present: warm, radial pulses palpable and symmetrical. Absent: calf tenderness, cyanotic, pedal edema - Neurological Exam Neurological exam: Present: CN II-XII intact, oriented X3, no focal deficits. Absent: pronater drift, facial droop, speech deficit - Skin Skin exam: Present: dry, intact Internal Medicine: Result - Labs CBC & Chem 7: 05/25/18 05:00 05/25/18 05:00 Consult Discharge Plan - Plan Referrals: NONE,PCP [Primary Care Provider] - Richie Lima DO [Partnered Physician] - (follow up in June )
== END 2018-05-28 12:50 | disposition home health service (06) | DRG 945 ==
LOC: INPGRE 05-21 19:20

== ENCOUNTER 2018-06-16 12:53 | Inpatient (IN) ==
[~2018-06-16 12:53] MED LIST: Azithromycin 250 MG TABLET PO SCH
[2018-06-16] MEDS ORDERED: Acetaminophen 325 MG TABLET PO PRN (20:34)
[2018-06-16] MEDS ORDERED: Mag Hydrox/Al Hydrox/Simeth 30 ML UDC PO PRN (20:34)
[2018-06-16] MEDS ORDERED: Furosemide 20 MG TABLET PO PRN (20:34)
[2018-06-16] MEDS ORDERED: Azithromycin 250 MG TABLET PO SCH (20:45)
[2018-06-16] MEDS ORDERED: traZODone 50 MG TABLET PO SCH (21:00)
[2018-06-16] MEDS ORDERED: Cefdinir 300 MG CAPSULE PO SCH (21:00)
[2018-06-17 04:25] VITALS: BP 111/77
[2018-06-17 05:38] LABS: Basophils % 0.2 %; Eosinophils # 0.2 K/mcL (0.0-0.6); Eosinophils % 1.2 %; Hematocrit 38.5 % (35.3-44.9); Hemoglobin 12.5 g/dL (11.5-15.4); Immature Granulocytes % 0.8 % (0-4); Lymphocytes # 3.8 K/mcL (0.6-4.6); Lymphocytes % 26.6 %; Mean Corpuscular HGB Conc 32.5 g/dL (31.6-35.5); Mean Corpuscular Hemoglobin 29.4 pg (28.0-33.3); Mean Corpuscular Volume 90.6 fL (83.0-100.0); Mean Platelet Volume 9.3 fL (9.4-12.4); Monocytes % 7.2 %; Nucleated Red Blood Cells 0.2 /100 WBC (0); Platelet Count 297 K/mcL (140-400); Red Blood Count 4.25 M/mcL (3.82-4.97); Red Cell Distribution Width 17.6 % (11.5-14.5)
[2018-06-17 05:40] LABS: Neutrophils # 9.2 K/mcL (1.6-8.9)
[2018-06-17 05:50] LABS: BUN/Creatinine Ratio 22 (6-26); Blood Urea Nitrogen 23 mg/dL (8-23); Calcium 9.5 mg/dL (8.6-10.3); Carbon Dioxide 24 mEq/L (23-29); Chloride 101 mEq/L (98-107); Glucose 134 mg/dL (70-105); Osmolality,Calculated 282 (280-300); Potassium 4.1 mEq/L (3.5-5.1); Sodium 133 mEq/L (136-145); eGFR For Non-African Americans 51 (> 60)
[2018-06-17 06:01] LABS: Troponin I 0.13 ng/mL (< 0.04)
[2018-06-17] MEDS ORDERED: *HR* Enoxaparin 40 MG/0.4 ML SYRINGE SQ SCH (09:00)
[2018-06-17] MEDS ORDERED: Metoprolol XL (24 HR) Succ 25 MG TAB.ER.24H PO SCH (09:00)
[2018-06-17] MEDS ORDERED: Lisinopril 20 MG TABLET PO SCH (09:00)
[2018-06-17] MEDS ORDERED: Aspirin Enteric Coated 81 MG Tablet PO SCH (09:00)
[2018-06-17] MEDS ORDERED: Multivit/Ca/Min/Fe/FA 1 TAB TABLET PO SCH (09:00)
[2018-06-17] MEDS ORDERED: Fenofibrate 54 MG TABLET PO SCH (09:00)
--- NOTE | 2018-06-17 09:40 | Internal Med History&Physical ---
Date of Encounter: 06/17/18 Time of Encounter: 09:39 Assessment and Plan (1) General weakness Status: Acute (2) Dementia Status: Chronic Qualifiers: Dementia type: unspecified type Dementia behavioral disturbance: without behavioral disturbance Qualified Code(s): F03.90 - Unspecified dementia without behavioral disturbance (3) CAD (coronary artery disease) Status: Chronic Qualifiers: Coronary Disease-Associated Artery/Lesion type: unspecified vessel or lesion type [place] vs. transplanted heart: [place] heart Associated angina: with unspecified angina Qualified Code(s): I25.119 - Atherosclerotic heart disease of [place] coronary artery with unspecified angina pectoris (4) Pneumonia Status: Acute Qualifiers: Aspiration pneumonia type: unspecified Lung location: lower lobe of lung Qualified Code(s): J69.0 - Pneumonitis due to inhalation of food and vomit Internal Medicine - H&P: HPI History of present illness: Ms. Painter is a 88 year old female who had a cardiopulmonary arrest early this morning and was discharged to another level of care before I could see her. She has been admitted here for weakness and reconditioning after pneumonia and heart failure. She is known to have poor ejection fraction and it was felt that she needed to have a higher level of observation. For this reason, she was transferred from this critical access Hospital. Past Med Surg Social Fam HX - Past Medical History Medical history: arthritis, CHF, dementia, GERD, hyperlipidemia, hypertension, myocardial infarction, osteoporosis, other Additional medical history: Neuropathic bladder. Psychiatric history: no psych history - Past Surgical History Surgical History: appendectomy, cholecystectomy, hysterectomy Additional surgical history: heart cath, back surgery, bladder suspension - Social History Smoking Status: Never smoker Smokeless Tobacco Status: No Alcohol use: none Drug use: none - Family History Father Adopted: [place]: Jonathan Salas Family Member Ethnicity: Non- Living Status: Age at : 71 Cause of : Heart Hx Family Cardiac Disorders: Yes Hx Family Respiratory Disorders: No Hx Family Cancer: No Hx Family GI Disorders: No Hx Family Genitourinary Disorders: No Hx Family Endocrine Disorder: No Hx Family Musculoskeletal Disorders: No Hx Family Neuromuscular Disorders: No Hx Family Neurologic Disorders: No Hx Family HEENT Disorders: No Hx Family Autoimmune Disorders: No Hx Family Reproductive Disorders: No Hx Family Psychosocial Disorders: No Hx Family Medical Disorders: No Internal Medicine - H&P: Meds Aspirin [Lo-Dose Aspirin EC] 81 mg PO DAILY 05/16/18 [History] Donepezil [Aricept] 5 mg PO HS 05/16/18 [History] Fenofibrate Nanocrystallized [Fenofibrate] 160 mg PO DAILY 05/16/18 [History] Lisinopril [Zestril] 20 mg PO DAILY 05/16/18 [History] Lovastatin 40 mg PO DAILY 05/16/18 [History] Memantine HCl 10 mg PO BID 05/16/18 [History] Metoprolol [Lopressor] 25 mg PO BID 05/16/18 [History] Multivit-Min/FA/Lycopen/Lutein [Centrum Silver Tablet] 1 tab PO DAILY 05/16/18 [History] Omeprazole [PriLOSEC] 20 mg PO DAILY 05/16/18 [History] Trazodone HCl 100 mg PO HS 05/16/18 [History] Triamterene/HCTZ 37.5/25mg [Dyazide] 1 tab PO DAILY 05/16/18 [History] Nitrofurantoin [Macrodantin] 50 mg PO HS 06/12/18 [History] Azithromycin [Azithromycin 6-Tab Pack] 250 mg PO PER PKG DI #6 tab 06/16/18 [Rx] Cefdinir [Omnicef] 300 mg PO BID 3 Days #6 capsule 06/16/18 [Rx] Furosemide [Lasix] 20 mg PO DAILY PRN #30 tablet 06/16/18 [Rx] Lovenox 40 mg SQ DAILY 06/16/18 [History] Mag Hydrox/Al Hydrox/Simeth [Maalox] 30 ml PO Q4H PRN 06/16/18 [History] Metoprolol XL (24 HR) Succ [Toprol Xl] 25 mg PO DAILY #60 tab.er.24h 06/16/18 [R x] MiraLAX 17 gm PO DAILY PRN 06/16/18 [History] Tylenol 650 mg PO Q4H PRN 06/16/18 [History] Allergy/AdvReac Type Severity Reaction Status Date / Time ciprofloxacin [From Cipro] Allergy Hives Verified 06/17/18 06:03 All Systems PM: A 10-system review of systems was performed and is negative for pertinent findings except as documented above in the HPI. - Constitutional Vitals: Temp Pulse Resp BP Pulse Ox 97.9 F 92 16 111/77 98 06/17/18 04:24 06/17/18 04:24 06/17/18 04:24 06/17/18 04:24 06/17/18 04:24 Internal Med - H&P Results - Labs CBC & Chem 7: 06/17/18 05:30 06/17/18 05:30 Labs: Short CBC 06/17/18 Range/Units 05:30 WBC 14.3 H (4.3-11.1) K/mcL Hgb 12.5 (11.5-15.4) g/dL Hct 38.5 (35.3-44.9) % Plt Count 297 (140-400) K/mcL Neutrophils # 9.2 H (1.6-8.9) K/mcL BMP 06/17/18 05:30 Sodium 133 L Potassium 4.1 Chloride 101 Carbon Dioxide 24 BUN 23 Creatinine 1.03 Glucose 134 H Calcium 9.5 Cardiac Enzymes 06/17/18 Range/Units 05:30 Troponin I 0.13 H* (< 0.04) ng/mL
--- NOTE | 2018-06-17 09:48 | Discharge Summary ---
Orders not resulted at time of discharge: Pending orders 06/17/18 05:30 ECG 12 lead ECG [ECG] Stat Date of Encounter: 06/17/18 Time of Encounter: 09:46 - Discharge Diagnosis (1) General weakness Priority: Primary Status: Acute (2) Dementia Priority: Secondary Status: Chronic Qualifiers: Dementia type: unspecified type Dementia behavioral disturbance: without behavioral disturbance Qualified Code(s): F03.90 - Unspecified dementia without behavioral disturbance (3) CAD (coronary artery disease) Priority: Secondary Status: Chronic Qualifiers: Coronary Disease-Associated Artery/Lesion type: unspecified vessel or lesion type [place] vs. transplanted heart: [place] heart Associated angina: with unspecified angina Qualified Code(s): I25.119 - Atherosclerotic heart disease of [place] coronary artery with unspecified angina pectoris (4) Pneumonia Priority: Secondary Status: Acute Qualifiers: Aspiration pneumonia type: unspecified Lung location: lower lobe of lung Qualified Code(s): J69.0 - Pneumonitis due to inhalation of food and vomit Hospital course: Ms. Painter is a 88 year old female who had a cardiopulmonary arrest early this morning and was discharged to another level of care before I could see her. She has been admitted here for weakness and reconditioning after pneumonia and heart failure. She is known to have poor ejection fraction and it was felt that she needed to have a higher level of observation. For this reason, she was transferred from this critical access Hospital. - Time Spent with Patient Total time spent providing and/or coordinating discharge services: - Discharge Medications Prescriptions: No Action Aspirin [Lo-Dose Aspirin EC] 81 mg PO DAILY Donepezil [Aricept] 5 mg PO HS Fenofibrate Nanocrystallized [Fenofibrate] 160 mg PO DAILY Lisinopril [Zestril] 20 mg PO DAILY Lovastatin 40 mg PO DAILY Memantine HCl 10 mg PO BID Metoprolol [Lopressor] 25 mg PO BID Multivit-Min/FA/Lycopen/Lutein [Centrum Silver Tablet] 1 tab PO DAILY Omeprazole [PriLOSEC] 20 mg PO DAILY Trazodone HCl 100 mg PO HS Triamterene/HCTZ 37.5/25mg [Dyazide] 1 tab PO DAILY Nitrofurantoin [Macrodantin] 50 mg PO HS Metoprolol XL (24 HR) Succ [Toprol Xl] 25 mg PO DAILY #60 tab.er.24h Furosemide [Lasix] 20 mg PO DAILY PRN #30 tablet PRN Reason: Edema Azithromycin [Azithromycin 6-Tab Pack] 250 mg PO PER PKG DI #6 tab Cefdinir [Omnicef] 300 mg PO BID 3 Days #6 capsule Mag Hydrox/Al Hydrox/Simeth [Maalox] 30 ml PO Q4H PRN PRN Reason: upset stomach Tylenol 650 mg PO Q4H PRN PRN Reason: pain/fever Lovenox 40 mg SQ DAILY MiraLAX 17 gm PO DAILY PRN PRN Reason: Constipation Home Medications: Aspirin [Lo-Dose Aspirin EC] 81 mg PO DAILY 05/16/18 [History] Donepezil [Aricept] 5 mg PO HS 05/16/18 [History] Fenofibrate Nanocrystallized [Fenofibrate] 160 mg PO DAILY 05/16/18 [History] Lisinopril [Zestril] 20 mg PO DAILY 05/16/18 [History] Lovastatin 40 mg PO DAILY 05/16/18 [History] Memantine HCl 10 mg PO BID 05/16/18 [History] Metoprolol [Lopressor] 25 mg PO BID 05/16/18 [History] Multivit-Min/FA/Lycopen/Lutein [Centrum Silver Tablet] 1 tab PO DAILY 05/16/18 [History] Omeprazole [PriLOSEC] 20 mg PO DAILY 05/16/18 [History] Trazodone HCl 100 mg PO HS 05/16/18 [History] Triamterene/HCTZ 37.5/25mg [Dyazide] 1 tab PO DAILY 05/16/18 [History] Nitrofurantoin [Macrodantin] 50 mg PO HS 06/12/18 [History] Azithromycin [Azithromycin 6-Tab Pack] 250 mg PO PER PKG DI #6 tab 06/16/18 [Rx] Cefdinir [Omnicef] 300 mg PO BID 3 Days #6 capsule 06/16/18 [Rx] Furosemide [Lasix] 20 mg PO DAILY PRN #30 tablet 06/16/18 [Rx] Lovenox 40 mg SQ DAILY 06/16/18 [History] Mag Hydrox/Al Hydrox/Simeth [Maalox] 30 ml PO Q4H PRN 06/16/18 [History] Metoprolol XL (24 HR) Succ [Toprol Xl] 25 mg PO DAILY #60 tab.er.24h 06/16/18 [Rx] MiraLAX 17 gm PO DAILY PRN 06/16/18 [History] Tylenol 650 mg PO Q4H PRN 06/16/18 [History] Allergies/Adverse Reactions: Allergy/AdvReac Type Severity Reaction Status Date / Time ciprofloxacin [From Cipro] Allergy Hives Verified 06/17/18 06:03 Date of admission: 06/16/18 18:50 Primary care physician: Richie Lima Consults: 06/16/18 20:29 Consult to Occupational Therapy [CONS] Routine Comment: Evaluate, develop and implement POC Reason for Consult: deconditioning s/p PNE, hyponatremia, CHF, PRIYA Does patient have active BEDREST order?: No Is patient medically & hemodynamically stable?: Yes Patient assessed for mobility or mobilized this visit?: No Consult to Physical Medicine/Rehab [CONS] Routine Reason for Consult: deconditioning s/p PNE, CHF exac, PRIYA, hyponatremia Call Completed: No Consult to Physical Therapy [CONS] Routine Comment: Evaluate, develop and implement POC Reason for Consult: deconditioning s/p PNE, hyponatremia, CHF, PRIYA Does patient have active BEDREST order?: No Is patient medically & hemodynamically stable?: Yes Patient assessed for mobility or mobilized this visit?: No Consult to Recreational Therapy [CONS] Routine Comment: Evaluate, develop and implement POC Consult to Automatic Coil Machine Operator [CONS] Routine Reason for SW Consult: discharge planning - Constitutional Vitals: Temp Pulse Resp BP Pulse Ox 97.9 F 92 16 111/77 98 06/17/18 04:24 06/17/18 04:24 06/17/18 04:24 06/17/18 04:24 06/17/18 04:24 - Patient Status Disposition: Transfer Short-Term Hosp Condition: Serious - Discharge Instructions Follow Up With: Richie Lima DO [Primary Care Provider] -
--- NOTE | 2018-06-17 19:22 | Electrocardiograph Report ---
[place] [id number] Test Date: 2018-06-17 Pat Name: Rocio Painter Department: 2001 Room: 102 Gender: F Transcription: Jorge : 1930 Requested By: Emmett Campos Order Number: [id number] Reading MD: Meg Stone Measurements Intervals [place] Rate: 125 P: 31 MO: 168 QRS: -32 QRSD: 89 T: 90 QT: 273 QTc: 347 Interpretive Statements SINUS TACHYCARDIA MARKED LEFT AXIS DEVIATION [QRS AXIS < -30] SEPTAL MYOCARDIAL INFARCTION [40+ ms Q WAVE IN V1/V2], PROBABLY OLD Electronically Signed On 06-17-2018 19:20:29 EST by Meg Stone
== END 2018-06-17 05:36 | disposition short-term general hospital (02) | DRG 947 ==
LOC: INPGRE 18:50